=== PATIENT | male | born 1935 | race Caucasian/White ===

== ENCOUNTER 2019-10-08 10:45 | Inpatient (IN) | payer MEDICARE ==
[2019-10-08] MEDS ORDERED: GLUCAGON HCl 1 MG KIT IM PRN (21:07)
[2019-10-09] MEDS: INSULIN LISPRO SLIDING SCALE 100 UNITS/ML UNIT SUBQ SCH ×4 (06:33→21:17)
[2019-10-09] MEDS ORDERED: Non-Formulary Item 1 EA (Mirabegron [Myrbetriq] 50 MG) PO SCH (09:00)
[2019-10-09] MEDS: Aspirin 81mg Chewable Tab PO SCH (09:33)
[2019-10-09] MEDS: Apixaban 5 MG TABLET PO SCH ×2 (09:33→16:47)
--- NOTE | 2019-10-09 10:10 | History & Physical ---
ADMIT DATE: 10/09/2019 MEDICAL H AND P IDENTIFICATION: An 84-year-old male. PSYCHIATRIST: Dr. Sharif. HISTORY OF PRESENT ILLNESS: An 84-year-old male with history of type 2 diabetes, hypertension, chronic AFib currently on blood thinner, presented to [facility] for hallucination where the patient was evaluated and noted that the patient has significant psychiatric history, needed to have a psychiatric evaluation and management. The patient is now transferred to [facility]. PAST MEDICAL HISTORY: Remarkable for: 1. Chronic AFib. 2. Anxiety, depression. 3. Diabetes mellitus. 4. Hypertension. 5. Hyperlipidemia. 6. Coronary artery disease. 7. Status post bypass graft. MEDICATIONS: At the time of transfer have been reviewed and reconciled appropriately. ALLERGIES: THE PATIENT IS ALLERGIC TO MULTIPLE MEDICATIONS, WHICH INCLUDE LISINOPRIL, PENICILLIN, AMIODARONE. SOCIAL HISTORY: The patient lives with the family. The patient has no history of smoking cigarette, alcohol or drug use. FAMILY MEDICAL HISTORY: Remarkable for diabetes mellitus and hypertension. PAST SURGICAL HISTORY: Remarkable for coronary artery disease, bypass graft in 2018 and rotator cuff injury on the left shoulder in 2009. REVIEW OF SYSTEMS: The patient currently denies any chest pain, shortness of breath, palpitations, dizziness, nausea, vomiting, headache, seizure, syncopal episode, no history of any hematuria, hematochezia, melena. No history of any cough, no history of paroxysmal nocturnal dyspnea, no history of any orthopnea, headache. PHYSICAL EXAMINATION: GENERAL: The patient is alert, awake, sitting in the bed without any acute distress. VITAL SIGNS: Temperature is 98, pulse is 76, respiratory rate is 18, blood pressure is 140/80. SKIN: Warm to touch. Adequate skin turgor. No petechiae, no purpura. HEENT: Normocephalic, atraumatic. Extraocular muscles are intact. Tongue was pink and coated. No oral lesion, no exudate. No sinus tenderness. NECK: Supple, no JVD, no hepatojugular reflex. No lymphadenopathy, thyromegaly or carotid bruit. HEART: Both heart sounds are regular. No S3, no S4, no murmur. CHEST AND LUNGS: Equal in expansion, no expiratory wheezing. ABDOMEN: Soft, no guarding, no rigidity. Liver and spleen not palpable. No palpable mass. EXTREMITIES: No edema, no cyanosis. Peripheral pulses are +1. No calf tenderness noted. NEUROLOGIC: Alert, awake, lying in the bed without any acute distress. Power in upper and lower extremities 5-. Sensation to touch is intact. Babinski's in both toes are going down. No cerebral sign. Available diagnostic data performed in [facility], which includes CBC, CMP, toxicity screen, urinalysis and thyroid, has been reviewed, which is remarkable for leukocytosis with a white count of 14.93, blood sugar of 216, BUN is 25, AST of 49, creatinine 1.2, magnesium was low at 0.6. Small protein was noted. CT head was unremarkable for any new CVA. CLINICAL IMPRESSIONS: 1. Exacerbation of depression. 2. Type 2 diabetes mellitus. 3. Hypertension. 4. Hyperlipidemia. 5. Coronary artery disease, status post bypass graft. 6. Degenerative joint disease. 7. Chronic atrial fibrillation. 8. High risk for fall. 9. Long-term anticoagulation therapy. PLAN: 1. Psychiatric evaluation and management deferred to psychiatrist. 2. Monitor blood sugar and blood pressure. 3. In the view of poor p.o. intake, hold oral sulfonylurea, continue metformin and continue to monitor blood sugar with sliding scale insulin. 4. Continue anticoagulation therapy with Eliquis, rate control, fall precautions, nutritional support, general nursing care as well as follow up lab to assess the patient's potassium and magnesium and creatinine function evaluation. Based on that, we will decide if the patient should be continued on metformin. I will hold metformin if the patient's creatinine is above 1.5. The patient will be followed by me during his stay in the hospital. I sincerely thank you, Dr. Sharif, for giving me the opportunity to participating in patient of yours. JOB# [id number]
--- NOTE | 2019-10-09 13:12 | History & Physical ---
ADMIT DATE: 10/08/2019 IDENTIFYING INFORMATION: The patient is 84-year-old male. CHIEF COMPLAINT: "I did bad things" with previous admission. The patient was admitted on a hold for grave disability. HISTORY OF PRESENT ILLNESS: The patient was psychotic, suicidal, and attempted to try to harm himself. He has 4 prior hospitalizations. He believes he is going to burn in hell and that he was walking around naked at home, was internally preoccupied, unable to formulate a viable plan for self-care. When I talked to him he was a poor historian. He was also hard of hearing. He told me, I did bad things and I need to pay for it. The patient reports he had a nervous breakdown, unable to give me more details, unable tell me how he is sleeping or eating. He knew this was 09/2019, not sure exactly what day in 09/2019. Denies any substance abuse. PAST PSYCHIATRIC HISTORY: The patient had 4 prior hospitalizations. The patient is confused. The patient unable to give more details. MEDICAL HISTORY: THE PATIENT IS ALLERGIC TO LISINOPRIL, PENICILLIN AND AMIODARONE. The patient is hard of hearing. MEDICATIONS: The patient has been on Lexapro 20 mg a day, Glucotrol, insulin. He is diabetic. He is on metformin, insulin; high blood pressure on metoprolol, atorvastatin on high lipid profile. FAMILY AND SOCIAL HISTORY: The patient reports he has 3 children and unable to tell me if he is or not. 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 He denies any family psychiatric disorder; however, he is a poor historian. MENTAL STATUS EXAMINATION: The patient is appropriately dressed, not well groomed. He was alert, unable to tell me his age. He knew he was in the hospital. He is not sure why he is in the hospital. He believe he done a lot about things, he needs to pay for it. He was walking naked. He wanted to harm himself. He is unpredictable and impulsive. Long and short term memory is poor. Insight and judgment is impaired. When asked about suicide and homicide, he would not answer. His insight and judgment is impaired, does not realize what problem he has. Judgment is poor, walking naked, wanting to harm himself. IMPRESSION: Major depression, recurrent with psychosis and dementia. MEDICAL DIAGNOSES: Hypercholesterolemia, hypertension and diabetes mellitus. Assets, he is accepting treatment. Negative; poor coping skills. INITIAL TREATMENT PLAN: The patient will be started on Aricept to improve his cognition. We will try to get more information on him. We will do group therapy, milieu therapy, and individual therapy. ESTIMATED LENGTH OF STAY: 3-7 days. DISCHARGE CRITERIA: Decreasing depression, paranoia after discharge, outpatient treatment. JOB# [id number] [facility]
[2019-10-10] MEDS: INSULIN LISPRO SLIDING SCALE 100 UNITS/ML UNIT SUBQ SCH ×4 (06:45→21:18)
[2019-10-10] MEDS: Aspirin 81mg Chewable Tab PO SCH (08:57)
[2019-10-10] MEDS: Apixaban 5 MG TABLET PO SCH ×2 (08:57→16:41)
--- NOTE | 2019-10-11 02:35 | Progress Notes ---
DATE: 10/10/2019 SUMMARY: Case was discussed with staff of the patient and reviewed treatment goals. Also discussed the care with his daughter, Alina, who I left a message yesterday, then she called back, and today, I called her again. She tells me that this patient had 4 prior hospitalizations. Apparently, he was from his . He was able to be independent up until June of last year. He used to live in [place]. 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 They moved him here to independent community and the daughter lives in [place] and the son lives in [facility] and they alternate taking care of him. She reports that there is a positive family history of psychiatric disorder. Actually, had a nephew that killed himself and his daughter has depression, so there is a positive family history of depression and suicide. I discussed with the daughter that the patient is high risk for dementia, especially with him being depressed, on antidepressant, also having high cholesterol, diabetes, hypertension, and that he may need 24-hour care and discussed with her medication benefits and side effects including Risperdal and Aricept. The patient has been compliant with the medication with no side effects. Daughter believes that at night, he is feeling that he has been burn in hell, he is actually maybe in his dreams, he is having bad dreams. She reports that he had a girlfriend, apparently an ex-girlfriend that ended up having problems and that led to his 4 prior hospitalizations. The patient used to teach fifth grade. The patient continues to be unable to participate in a meaningful conversation or make safe plan for his self-care. He continues to have poor insight in general. No side effects with the medication, no sedation, no nausea, and no extrapyramidal symptoms. He continues to be delusional and paranoid. The patient was walking naked in the house. I will be extending the hold and discuss that with the daughter. We will continue to work with the patient in group therapy, milieu therapy, and adjust medications as needed. JOB# [id number]
[2019-10-11] MEDS: INSULIN LISPRO SLIDING SCALE 100 UNITS/ML UNIT SUBQ SCH ×4 (06:35→20:57)
[2019-10-11] MEDS: Apixaban 5 MG TABLET PO SCH ×2 (09:20→16:25)
[2019-10-11] MEDS: Aspirin 81mg Chewable Tab PO SCH (09:20)
[2019-10-11] MEDS: MYRBETRIQ 50 MG PO SCH (14:00)
--- NOTE | 2019-10-11 22:25 | Progress Notes ---
DATE: 10/11/2019 SUBJECTIVE: Case was discussed with staff of the patient, reviewed records. The patient continues to be confused. He is incontinent today. Continues to be unable to make safe plan for self-care. Continues to have poor insight. I discussed the care with his daughter yesterday. I was trying to work on discharge plan for him and what to do for him. He is unable to tell me the exact date. He continues to be unable to participate for a long time meaningful conversation. He is just confused. No side effects with the medication, no sedation, no nausea. We will continue outpatient group therapy, milieu therapy, and adjust medication as needed. JOB# [id number]
[2019-10-12] MEDS: INSULIN LISPRO SLIDING SCALE 100 UNITS/ML UNIT SUBQ SCH ×4 (06:52→21:02)
[2019-10-12] MEDS: Aspirin 81mg Chewable Tab PO SCH (08:35)
[2019-10-12] MEDS: Apixaban 5 MG TABLET PO SCH ×2 (08:35→16:18)
[2019-10-12] MEDS: MYRBETRIQ 50 MG PO SCH (08:53)
--- NOTE | 2019-10-12 16:00 | Progress Notes ---
DATE: 10/12/2019 Case was discussed with staff of the patient, also had a discussion with his son yesterday, Vaibhav and discussed with him the situation. Prognosis what diagnosis he possibly could have and the need for him to have 24-hour care. His son reported that they do plan to give him a caregiver to be with him 24 hours or maybe had to be living in assisted living with a history of being in the [facility]. The patient apparently has long history of prior psychiatric hospitalizations, long history of depression. The patient continues to be somewhat confused, unable to answer questions appropriately. He is trying to tell me he is constipated, but did not know how to deal it. Finally, he said he has to release what is in his stomach. he Continues to have poor insight, unable to tell me the exact date agitated. No side effects of the medication, no sedation, no nausea, no extrapyramidal symptoms. I will be increasing Risperdal to 0.5 mg twice a day to help improve his cognition and delusional thinking. No side effects of the medication, no sedation, no nausea, no extrapyramidal symptoms. We will continue the patient in group therapy, milieu therapy, adjust medication as needed. JOB# [id number]
[2019-10-13] MEDS: INSULIN LISPRO SLIDING SCALE 100 UNITS/ML UNIT SUBQ SCH ×4 (06:44→20:26)
[2019-10-13] MEDS: Aspirin 81mg Chewable Tab PO SCH (09:22)
[2019-10-13] MEDS: Apixaban 5 MG TABLET PO SCH ×2 (09:22→16:36)
[2019-10-13] MEDS: MYRBETRIQ 50 MG PO SCH (09:23)
--- NOTE | 2019-10-14 00:47 | Progress Notes ---
DATE: 10/13/2019 IDENTIFICATION: An 84-year-old male. SUBJECTIVE: The patient was seen and examined. The patient is lying in the bed. The patient is easy to awake. The patient denies any chest pain, shortness of breath, palpitation, dizziness, nausea or vomiting. The patient is ambulatory. PHYSICAL EXAMINATION: VITAL SIGNS: Temperature 98.6, pulse is 56, respiratory rate 18, blood pressure 92/43. HEENT: No facial asymmetry. NECK: Supple, no JVD. HEART: Regular. CHEST AND LUNGS: Equal in expansion, no expiratory wheezing. ABDOMEN: Soft. No guarding, no rigidity. Bowel sounds present. No palpable mass. EXTREMITIES: No edema, no cyanosis. NEUROLOGIC: Alert, awake, follows command. Decreased power throughout the upper and lower extremity. AVAILABLE DIAGNOSTIC DATA: None for my review. MEDICATIONS: Admission record has been reviewed. CLINICAL IMPRESSION: 1. Major depression. 2. Psychotic disorder. 3. Type 2 diabetes. 4. Hypertension. 5. Hyperlipidemia. 6. Coronary artery disease, status post bypass graft. 7. Degenerative joint disease. 8. Chronic atrial fibrillation. 9. High risk for fall. 10. Long-term anticoagulant therapy. 11. Ruled out depression. PLAN: 1. Psychotic evaluation and management deferred to psychiatrist. 2. Monitor blood sugar and blood pressure. 3. Continue other medication as prescribed. 4. Fall precautions. 5. General nursing care. 6. Nutritional support. 7. PT and OT. 8. Follow labs. 9. Care plan reviewed and discussed with the patient's daughter, Elizabeth Christine over the phone care as well as assigned nurse. JOB# [id number]
--- NOTE | 2019-10-14 03:18 | Progress Notes ---
DATE: 10/13/2019 Case was discussed with staff of the patient, reviewed records. The patient has been isolating himself. He was feeding himself today. He ate only the eggs, at breakfast. He was able to tell me that. He was unable to tell me the date. He is confused, unable to make safe plan for self-care or participate in meaningful conversation for a long time. The staff is working on placing him in an assisted living with the understanding that there was a planned 24-hour care as I spoke to his son and his daughter. No side effects with the medication, no sedation, no nausea, no extrapyramidal symptoms. I asked him if he is still confused , he would not answer me. He would not answer any question regarding suicide, homicide. No side effects with the medication, no sedation, no nausea, no extrapyramidal symptoms. We will continue outpatient group therapy, milieu therapy, and adjust medications as needed. JOB# [id number] [facility]
[2019-10-14] MEDS: INSULIN LISPRO SLIDING SCALE 100 UNITS/ML UNIT SUBQ SCH ×4 (06:36→20:43)
[2019-10-14] MEDS: MYRBETRIQ 50 MG PO SCH (09:12)
[2019-10-14] MEDS: Apixaban 5 MG TABLET PO SCH ×2 (09:12→16:29)
[2019-10-14] MEDS: Aspirin 81mg Chewable Tab PO SCH (09:13)
--- NOTE | 2019-10-14 17:24 | Progress Notes ---
DATE: 10/14/2019 Case was discussed with staff of the patient, reviewed records. The patient continues to be somewhat confused. He knew it is 09/2019. He is not eating great. He is sleeping okay. He continues to be confused, unable to participate in a lengthy conversation. His answers are only one word, isolating himself. Continues to appear to be depressed. No side effects with the medication. No sedation. No nausea and continues to feel like ____ and tolerating increase in Risperdal with no side effects, no sedation, no nausea, no extrapyramidal symptoms. We will continue outpatient group therapy, milieu therapy, adjust the medication as needed. JOB# [id number]
[2019-10-15] MEDS: INSULIN LISPRO SLIDING SCALE 100 UNITS/ML UNIT SUBQ SCH ×4 (06:55→21:51)
[2019-10-15] MEDS: MYRBETRIQ 50 MG PO SCH (08:31)
[2019-10-15] MEDS: Aspirin 81mg Chewable Tab PO SCH (08:31)
[2019-10-15] MEDS: Apixaban 5 MG TABLET PO SCH ×2 (08:31→16:23)
--- NOTE | 2019-10-15 13:03 | Progress Notes ---
DATE: 10/15/2019 Case was discussed with staff of the patient, reviewed records. The patient is able to talk a little bit more. He believes this is the 10/14/2019. However, he poses and it takes him a while to give the information. He know he is in the hospital because he had a nervous breakdown. He said he is trying to get out of it, but sometimes he could and he has some psychomotor retardation. He continues to be depressed, overwhelmed, forgetful, unable to take care of himself, needs help with his ADLs, able to feed himself, sleeping better, eating better. No side effects with the medication, no sedation, no nausea, no extrapyramidal symptoms. We will continue outpatient group therapy, milieu therapy, adjust the medication as needed. Tolerating increase in Risperdal with no problem. He is already on Lexapro 20 mg a day. JOB# [id number]
[2019-10-16] MEDS: INSULIN LISPRO SLIDING SCALE 100 UNITS/ML UNIT SUBQ SCH ×4 (06:44→20:47)
[2019-10-16] MEDS: MYRBETRIQ 50 MG PO SCH (09:19)
[2019-10-16] MEDS: Apixaban 5 MG TABLET PO SCH ×2 (09:20→16:57)
[2019-10-16] MEDS: Aspirin 81mg Chewable Tab PO SCH (09:20)
--- NOTE | 2019-10-16 13:59 | Progress Notes ---
DATE: 10/16/2019 Case was discussed with staff of the patient, reviewed records and talked to Dr. De Los Santos, his primary care physician who told me he saw him 2 months ago and he was doing very well and that he was in very good shape. He was able to jog. He was driving and I am not sure that he may had a stroke and I discussed the care with Dr. Nicole. He apparently according to the son, who was on the unit this morning, he told me that he did have a CT scan of the head just before he came in here and he was fine; however, I will leave this up to Dr. Alfredo to make further decision. He is ordering some more lab work. I am not sure if he will do MRI. The patient is alert, but he has no energy, no motivation. Obviously, the Lexapro is not working with psychomotor retardation. I will be changing it to Effexor and also he will be taking Aricept at the same time just to see how he does without it and further workup will be done by Dr. Nicole. We will continue outpatient group therapy, milieu therapy, and adjust the medication as needed. JOB# [id number] MTDZechariah
--- NOTE | 2019-10-16 14:37 | Diagnostic Imaging Report ---
CHEST X-RAY: AP view INDICATION: Positive PPD rule out TB COMPARISON: None FINDINGS: There is evidence of prior median sternotomy. There is elevation of right hemidiaphragm. There is no focal consolidation or pleural effusions. Mild cardiomegaly is noted with atherosclerosis. Degenerative changes of the spine are noted. IMPRESSION: No focal consolidation or evidence radiographic evidence of active tuberculosis. Please correlate clinically. Mild cardiomegaly atherosclerosis Evidence of prior median sternotomy.
[2019-10-16] MEDS ORDERED: Venlafaxine HCl ER 37.5 mg Tab PO SCH (17:00)
[2019-10-17] MEDS: INSULIN LISPRO SLIDING SCALE 100 UNITS/ML UNIT SUBQ SCH ×4 (06:35→20:37)
[2019-10-17] MEDS: MYRBETRIQ 50 MG PO SCH (08:23)
[2019-10-17] MEDS: Aspirin 81mg Chewable Tab PO SCH (08:23)
[2019-10-17] MEDS: Apixaban 5 MG TABLET PO SCH ×2 (08:23→16:33)
[2019-10-17] MEDS ORDERED: Venlafaxine HCl ER 37.5 mg Tab PO SCH (09:00)
--- NOTE | 2019-10-17 21:03 | Progress Notes ---
DATE: 10/17/2019 Case was discussed with staff of the patient, reviewed records. He is on Lexapro, start him on Effexor. Today, he was feeding himself. He has a little bit more energy. Continues to have constricted affect. The patient continues to be depressed, overwhelmed. I started him yesterday on Effexor 37.5 mg daily with no side effects, no sedation, no nausea, no extrapyramidal symptoms. Risperdal 0.5 mg twice a day and I will be increasing the dose of Effexor to 75 mg daily to help improve his depression, give him more energy. We will continue outpatient group therapy, milieu therapy, adjust the medication as needed. JOB# [id number] MTDD
--- NOTE | 2019-10-17 23:40 | Progress Notes ---
DATE: 10/17/2019 SUBJECTIVE: The patient seen and examined. The patient is sitting in the bed, eating his breakfast. The patient has a very flat affect. The patient did have a blood test done this morning, which I ordered yesterday. Chest x-ray was done, which is unremarkable. The patient is currently alert, awake, answering all the questions appropriately. On further questioning, the patient denies any chest pain, shortness of breath, palpitation, dizziness, nausea, vomiting, headache. PHYSICAL EXAMINATION: VITAL SIGNS: Temperature 98.8, pulse is 93, respiratory rate 18, blood pressure 124/61. HEENT: No facial asymmetry. NECK: Supple, no JVD. HEART: Both heart sounds are regular. CHEST AND LUNGS: Equal in expansion, no expiratory wheezing. ABDOMEN: Soft. No guarding, no rigidity. Bowel sounds are present. No palpable mass. EXTREMITIES: No edema, no cyanosis. Peripheral pulses are +2. No calf tenderness. NEUROLOGIC: Alert, awake, following commands. Decreased power throughout the upper and lower extremity. AVAILABLE DIAGNOSTIC DATA: None for my review. CLINICAL IMPRESSION: 1. Depression exacerbation. 2. Diabetes mellitus. 3. Hypertension. 4. Hyperlipidemia. 5. Coronary artery disease, status post bypass graft. 6. Chronic atrial fibrillation. 7. Degenerative joint disease. 8. High risk for fall. 9. Long-term anticoagulation therapy. 10. Poor p.o. intake and increasing lethargy. Differential diagnosis ruled out underlying depression causing symptoms, ruled out medication side effect, ruled out infectious or other metabolic etiology. 11. Underlying dementia, most likely Alzheimer's versus multi-infarct. PLAN: In the view of the patient's symptoms of increasing lethargy and poor p.o. intake, I have discontinued the patient's metformin, which can cause the appetite suppression and also I have cut down his Lipitor to 40 mg daily instead of 80. Lab has been requested. We will review it and we may give further recommendation. I do not see any clear-cut evidence of any infection at this time. I do think the patient's symptoms more related to psychotic illness. 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 I do think the patient may have underlying depression and dementia together as well. Care plan has been reviewed and discussed with MICHELLE. JOB# [id number]
[2019-10-18] MEDS: INSULIN LISPRO SLIDING SCALE 100 UNITS/ML UNIT SUBQ SCH ×4 (06:32→20:38)
[2019-10-18] MEDS: Aspirin 81mg Chewable Tab PO SCH (08:27)
[2019-10-18] MEDS: Apixaban 5 MG TABLET PO SCH ×2 (08:27→16:12)
[2019-10-18] MEDS: MYRBETRIQ 50 MG PO SCH (08:28)
--- NOTE | 2019-10-18 21:00 | Progress Notes ---
DATE: 10/18/2019 SUBJECTIVE: The patient seen and examined. The patient is lying in the bed. The patient is more alert, awake and talking appropriately. The patient currently denies any chest pain, shortness of breath, palpitation, dizziness, nausea, vomiting or diarrhea. PHYSICAL EXAMINATION: On today's exam: VITAL SIGNS: Temperature 97.4, pulse is 96, respiratory rate 18, blood pressure 134/72. HEENT: No facial asymmetry. NECK: Supple, no JVD. HEART: Irregularly irregular. CHEST AND LUNGS: Equal in expansion, no expiratory wheezing. ABDOMEN: Soft. Bowel sounds present. No palpable mass. EXTREMITIES: No edema. AVAILABLE DIAGNOSTIC DATA: Performed on 10/17/2019; sodium 129, potassium 4.1, chloride 100, BUN and creatinine is 30 and 1.22. Glucose of 181. Albumin of 2.6. White count of 11.9, hemoglobin 14.1, platelet count 265. Lactic acid 1.6. Urinalysis is not available. CLINICAL IMPRESSION: 1. Elevated BUN with normal creatinine, most likely secondary to prerenal azotemia. 2. Hyponatremia, probably secondary to poor p.o. intake. 3. Diabetes mellitus. 4. Hypertension. 5. Chronic atrial fibrillation. 6. Coronary artery disease, status post bypass graft. 7. Degenerative joint disease. 8. Depression. 9. Rule out underlying dementia. PLAN: Based on the currently prescribed lab, I do not think the patient needs to be transferred to medical floor, but the patient should be encouraged to drink plenty of fluids and oral intake and once the patient has adequate oral intake, we will recheck the basic metabolic panel. I do believe all his symptoms are related to underlying depression and possible dementia. The management has been deferred to psychiatrist. We will continue to monitor blood sugar and blood pressure for diabetes and hypertension. We will continue current medication as prescribed. We will follow this patient during the stay in the hospital. JOB# [id number]
--- NOTE | 2019-10-18 22:32 | Progress Notes ---
DATE: 10/18/2019 SUBJECTIVE: Case was discussed with staff of the patient, reviewed records. The patient seems to be showing progress. He is more energetic today, more spontaneous. "I was able to tell me the date, being 10/18/2019." The patient has more energy. He is sleeping better, eating better. He tolerated the adding of the Effexor with no side effects, no sedation, no nausea, no extrapyramidal symptoms. I will be increasing the Effexor further to 112.5 mg daily. No side effects with the medication, no sedation, no nausea, no extrapyramidal symptoms. Also the family is working on discharge plan and to go to [facility] that is where the family wanted him to go and we will continue outpatient group therapy, milieu therapy, and adjust medication as needed. JOB# [id number]
[2019-10-19] MEDS: INSULIN LISPRO SLIDING SCALE 100 UNITS/ML UNIT SUBQ SCH ×4 (07:02→20:39)
[2019-10-19] MEDS: Apixaban 5 MG TABLET PO SCH ×2 (08:28→16:48)
[2019-10-19] MEDS: Aspirin 81mg Chewable Tab PO SCH (08:28)
[2019-10-19] MEDS: MYRBETRIQ 50 MG PO SCH (08:49)
[2019-10-19] MEDS ORDERED: Venlafaxine HCl ER 37.5 mg Tab PO SCH (09:00)
--- NOTE | 2019-10-19 14:58 | Progress Notes ---
DATE: 10/19/2019 Case was discussed with staff of the patient, reviewed records. The patient was somewhat confused today he started telling me the date, but he stopped. He said I could not think. He has some psychomotor retardation. He did better yesterday, so I will be decreasing his Effexor to only 75 mg daily as he did better on that dose. He is sleeping better, eating better. He can feed himself. He was unable to say much today. He looked overwhelmed. He said "I cannot get it together." He was denying any intent to harm himself or anyone. I will be decreasing his Effexor to 75 mg a day. The staff is also working on discharge plan. He will be going to [facility] and the patient is denying any current intent to harm himself or anyone and denying any auditory or visual hallucination, at times feel he is evil. I will continue to work with the patient in group therapy, milieu therapy, and adjust the medication as needed. JOB# [id number]
[2019-10-20] MEDS: INSULIN LISPRO SLIDING SCALE 100 UNITS/ML UNIT SUBQ SCH ×4 (06:57→20:55)
[2019-10-20] MEDS: Aspirin 81mg Chewable Tab PO SCH (08:20)
[2019-10-20] MEDS: Apixaban 5 MG TABLET PO SCH ×2 (08:20→16:41)
[2019-10-20] MEDS: MYRBETRIQ 50 MG PO SCH (08:23)
[2019-10-21] MEDS: INSULIN LISPRO SLIDING SCALE 100 UNITS/ML UNIT SUBQ SCH ×5 (06:51→20:55)
[2019-10-21] MEDS: Aspirin 81mg Chewable Tab PO SCH ×2 (09:00→09:05)
[2019-10-21] MEDS: MYRBETRIQ 50 MG PO SCH ×2 (09:00→09:04)
[2019-10-21] MEDS: Apixaban 5 MG TABLET PO SCH ×3 (09:00→16:17)
--- NOTE | 2019-10-22 00:31 | Progress Notes ---
DATE: 10/20/2019 Case was discussed with staff of the patient, reviewed records. The patient today is talking more. He has a little bit more energy. Continues to be depressed, continues to isolate himself. He was able to tell me the date. He seems to start to show little progress. I will keep him on the same dose of Effexor, as when I increased the dose he got worse and currently no side effects with the medication, no sedation, no nausea, no extrapyramidal symptoms , will go to a [facility] and we will continue outpatient group therapy, milieu therapy, and adjust medication as needed. JOB# [id number] MTDZechariah
[2019-10-22] MEDS: INSULIN LISPRO SLIDING SCALE 100 UNITS/ML UNIT SUBQ SCH ×4 (06:50→21:41)
[2019-10-22] MEDS: MYRBETRIQ 50 MG PO SCH ×2 (08:57→09:35)
[2019-10-22] MEDS: Apixaban 5 MG TABLET PO SCH ×3 (08:57→17:44)
[2019-10-22] MEDS: Aspirin 81mg Chewable Tab PO SCH ×2 (08:57→09:36)
--- NOTE | 2019-10-22 17:51 | Progress Notes ---
DATE: 10/22/2019 SUBJECTIVE: The patient seen and examined. The patient was sent to Emergency Room yesterday. The patient did have a workup including CT scan of head, x-rays of the left shoulder, blood test, urinalysis. According to Emergency Room MD and reviewing the chart, it was noted that the patient's creatinine with slightly elevated. The patient did not have any bleed. The patient is lying comfortably, though the patient is easy to awake. The patient looks a little lethargic. The patient otherwise remaining without any acute distress. PHYSICAL EXAMINATION: VITAL SIGNS: See nurse's note. HEENT: No facial asymmetry. NECK: Supple. No JVD. HEART: Irregularly irregular. CHEST: Lung equal in expansion. No expiratory wheezing. ABDOMEN: Soft. Bowel sounds present. No palpable masses. EXTREMITIES: +1 edema. NEUROLOGICAL: Nonfocal, moving upper and lower extremity without difficulty. CLINICAL IMPRESSION: 1. Slightly elevated creatinine, probably secondary to poor p.o. intake causing prerenal azotemia. 2. Diabetes mellitus with elevated blood sugar. 3. Declining mental status, probably depression, rule out medication, rule out worsening dementia. 4. Hypertension. 5. Chronic atrial fibrillation. 6. Coronary artery disease, status post-bypass graft. 7. Degenerative joint disease. 8. High risk for fall. 9. Poor p.o. intake. PLAN: The patient will be placed on close supervision for fall. The patient to have diabetes management along with oral hypoglycemic agent. Continue to monitor his vital signs and provide currently prescribed medications. A Doppler study has been requested, which we will review it and give further recommendations. I do not see any sign of an infection. I will not consider to put the patient on antibiotic. The patient will be followed by us during the stay in the hospital. I will be talking to the patient's daughter about the patient's conditions and treatment plan. JOB# [id number]
--- NOTE | 2019-10-23 03:11 | Progress Notes ---
DATE: 10/22/2019 PSYCHIATRIC PROGRESS NOTE SUBJECTIVE: Chart was reviewed and the patient interviewed. Also discussed the patient's condition with the staff and reviewed records and labs. The patient still seems to be slightly drowsy, but steady gait. The patient seems slightly confused, but cooperative. The patient also is still trying to interact more, but in a confused state. The patient was sent yesterday to [facility] and had ____ after he fell and ____ came negative and the patient returned to the hospital. Otherwise, no side effects of medications. ASSESSMENT: The patient is still confused and slightly sleepy. TREATMENT PLAN: We will continue monitoring his behavior closely. Also, we will decrease Risperdal to 0.25 mg at bedtime and we will continue to follow up. JOB# [id number]
[2019-10-23] MEDS: INSULIN LISPRO SLIDING SCALE 100 UNITS/ML UNIT SUBQ SCH ×4 (06:39→20:46)
[2019-10-23] MEDS: MYRBETRIQ 50 MG PO SCH (09:00)
[2019-10-23] MEDS: Apixaban 5 MG TABLET PO SCH ×2 (09:01→17:28)
[2019-10-23] MEDS: Aspirin 81mg Chewable Tab PO SCH (09:01)
--- NOTE | 2019-10-23 13:21 | Progress Notes ---
DATE: 10/23/2019 Case was discussed with staff of the patient, reviewed records. The patient is not doing well. He is not able to talk spontaneously today, some blocked thoughts. The patient kept his eyes closed. The staff reported that he fell down. The patient seems to have no energy, no motivation. The staff report, there have been no sequelae from the fall; however, Dr. Alfredo ordered an x-ray of the neck, cervical spine, and left shoulder. Venous Doppler of both lower extremities and Tylenol p.r.n. and the patient will be going to [place] to have this done. The patient so far has been compliant with the medication. The family is refusing only the ultrasound; however, the rest of the x-rays are done, nothing came positive for any fractures and I will be asking for a second opinion from Dr. Vann to see him tomorrow. The patient continues to be on Risperdal and the dose was decreased to 0.25 mg at bedtime by Dr. Hays over the weekend and yesterday he is on Effexor 75 mg daily. We will continue outpatient group therapy, milieu therapy, and adjust medications as needed. JOB# [id number]
[2019-10-24] MEDS: INSULIN LISPRO SLIDING SCALE 100 UNITS/ML UNIT SUBQ SCH ×4 (06:50→20:24)
[2019-10-24] MEDS: Aspirin 81mg Chewable Tab PO SCH (08:30)
[2019-10-24] MEDS: MYRBETRIQ 50 MG PO SCH (08:30)
[2019-10-24] MEDS: Apixaban 5 MG TABLET PO SCH ×2 (08:30→16:59)
--- NOTE | 2019-10-24 17:02 | Progress Notes ---
DATE: 10/24/2019 MEDICAL PROGRESS NOTE SUBJECTIVE: The patient seen and examined. The patient is lying in the bed. The patient is more alert and awake, asking for his family. The patient's family is requesting to feed this patient from home. The patient currently denies any chest pain, shortness of breath, palpitation, dizziness, nausea, or vomiting. PHYSICAL EXAMINATION: VITAL SIGNS: Temperature 97, pulse is 74, respiratory rate 18, blood pressure 112/65. HEENT: No facial asymmetry. NECK: Supple, no JVD. HEART: Regular. CHEST AND LUNGS: Equal in expansion, no expiratory wheezing. ABDOMEN: Soft. Bowel sounds present. No palpable mass. EXTREMITIES: No edema. NEUROLOGIC: Alert, awake, follows command. No gross neuro deficit noted. AVAILABLE DIAGNOSTIC DATA: None for my review. Glucoscan is reviewed. CLINICAL IMPRESSION: 1. Diabetes. 2. Hypertension. 3. Chronic atrial fibrillation. 4. Coronary artery disease, status post bypass graft. 5. Hyperlipidemia. 6. Degenerative joint disease. 7. Anticoagulation therapy. PLAN: 1. Psychotic evaluation and management deferred to psychiatrist. 2. Continue current medicine as prescribed. 3. Fall precautions. 4. General nursing care. 5. Monitor vital signs. 6. Monitor glucose. 7. Nutritional support. 8. Chronic disease management. 9. Symptoms management. 10. Medication management. 11. Care plan reviewed and discussed with staff. JOB# [id number]
--- NOTE | 2019-10-24 20:39 | Progress Notes ---
DATE: 10/24/2019 Second opinion note, Dr. Sharif. SUBJECTIVE: I spoke with Dr. Sharif personally about this patient, reviewed records, notes. Per nursing staff, the patient has been showing signs of improvement, more awake, alert. On [id number], he is AO to name, place, situation, month, year. He knows he is in the hospital. He does not know the name of the hospital or the city. He attests to depression, but states that since he has been here he has been doing better, still feeling somewhat tired. Per nursing staff, he has been verbalizing he wants to leave and he has been eating 100% of the family food and the family is very involved with him. Family concerned about medication side effects, oversedation. The patient is arousable on exam. OBJECTIVE: On exam, the patient answering questions appropriately, more awake, engaged. No current SI or HI, no overt psychotic symptoms. Insight seems more reasonable. He states that he wants to walk. He states that if physical therapy were available, he would certainly work with them, "I want to walk." PLAN: The patient likely could be managed at a lower level. He is not suicidal. He is not homicidal. He is not psychotic. He is eating well and sleeping fairly well and redirectable and not agitated per staff. Motivated for physical therapy, which is something he could benefit from. Dr. Sharif is interested in potentially initiating Wellbutrin, which, at a low dose, could be a reasonable alternative to the Effexor. Family is concerned it may be causing side effects. Continue dosing of Risperdal at 0.25 mg. Apparent history of psychotic depression in the past. Would recommend a further 24 hours of monitoring with planned discharge tomorrow if shelter accepts. JOB# [id number]
--- NOTE | 2019-10-24 21:33 | Progress Notes ---
DATE: Case was discussed with staff of the patient, reviewed records. I discussed the care with his daughter yesterday as she was extremely upset that nobody called her regarding his fall and I explained to her that I was out till today I called her yesterday that is when I found out about him falling and that his medication have been held. He said that he was seen in the Emergency Room. He was told that his medication need to be adjusted. The psych medication that may have caused the sedation, luckily he did not have any injury, we have been withholding his medication. She agreed that I start Wellbutrin. Discussed side effects with her and so far he has not been taking any psychotropic medication for a few days. I asked Dr. Vann for a second opinion and he believes that he is doing much better as he was told that he is eating 100% of the food that his family has been bringing to him, he is not suicidal. He is not paranoid, so if I had to accept him, maybe we could let him go. I will be also initiating on a very small dose of Wellbutrin, one-half a tablet of 100 mg. Discussed side effects with his daughter. The patient has no history of seizure disorder, or eating disorder so I will be initiating him on a very small dose of 50 mg one-half a tablet of 100 mg SR and the patient used to be on antidepressant for years with multiple prior hospitalizations. The patient denies any intent to harm himself or anyone. He denies any additional visual hallucination or paranoia and at this point, also we will ask the patient to sign voluntary and will continue outpatient group therapy, milieu therapy, adjust medication as needed. JOB# [id number] JEWELL
[2019-10-25] MEDS: INSULIN LISPRO SLIDING SCALE 100 UNITS/ML UNIT SUBQ SCH ×4 (06:46→20:53)
[2019-10-25] MEDS: MYRBETRIQ 50 MG PO SCH (08:44)
[2019-10-25] MEDS: Apixaban 5 MG TABLET PO SCH ×2 (08:44→16:28)
[2019-10-25] MEDS: Aspirin 81mg Chewable Tab PO SCH (08:45)
[2019-10-26] MEDS: INSULIN LISPRO SLIDING SCALE 100 UNITS/ML UNIT SUBQ SCH ×4 (06:46→21:56)
[2019-10-26] MEDS: MYRBETRIQ 50 MG PO SCH (09:12)
[2019-10-26] MEDS: Apixaban 5 MG TABLET PO SCH ×2 (09:13→17:23)
[2019-10-26] MEDS: Aspirin 81mg Chewable Tab PO SCH (09:13)
--- NOTE | 2019-10-26 10:13 | Progress Notes ---
DATE: 10/25/2019 Case was discussed with staff of the patient, reviewed records. The patient seems to be tired; however, the staff reports that he was able to do physical therapy. He eats 100% of the food that his family brings. He is sleeping better. He continues to appear to be depressed. He is able to tell me that this is 09/2019. He denies any current intent to harm himself or anyone. Sleeping better. He no longer feeling paranoid. No side effects with the Wellbutrin. He tolerated the Wellbutrin with no problems. We will continue outpatient group therapy, milieu therapy, and adjust medication as needed. JOB# [id number]
--- NOTE | 2019-10-26 15:31 | Progress Notes ---
DATE: 10/26/2019 Case was discussed with staff of the patient, reviewed records. The patient is doing better. The staff reports he is eating 100% of the food that his family brings but he preferred to stay in his bed when I talked to him, he seems to have not much energy though he is on Wellbutrin 50 mg daily. He reported that he does not want to harm himself or anyone. He slept well. He is isolating. He denies any other visual hallucination. Denies feeling paranoid. Working on discharge plan. Apparently, the place where he was accepted at this time does not want to go there. Advised the staff to try to find another place soon as he is ready to go to a lesser level of care. We will continue outpatient group therapy, milieu therapy, adjust medication as needed. JOB# [id number]
[2019-10-27] MEDS: INSULIN LISPRO SLIDING SCALE 100 UNITS/ML UNIT SUBQ SCH ×4 (06:52→21:05)
[2019-10-27] MEDS: Apixaban 5 MG TABLET PO SCH ×2 (08:27→16:31)
[2019-10-27] MEDS: MYRBETRIQ 50 MG PO SCH (08:28)
[2019-10-27] MEDS: Aspirin 81mg Chewable Tab PO SCH (08:28)
--- NOTE | 2019-10-28 00:22 | Progress Notes ---
DATE: 10/27/2019 Case was discussed with staff of the patient, reviewed records. The staff reports that the patient's energy level is improving. He is more responsive. The patient denies any intent to harm himself or anyone. Denies any visual hallucination. Sleeping better. He is eating 100% of the food that his family is bringing ,has a subway sandwich and he started eating it. The family did not want him to go to the memory care at [facility] and they are working on different placement. Hopefully, he will be discharged by Wednesday. No side effects with this medication, no sedation, no nausea and no increase in anxiety. I will continue outpatient group therapy, milieu therapy, adjust medication as needed. JOB# [id number] JEWELL
[2019-10-28] MEDS: INSULIN LISPRO SLIDING SCALE 100 UNITS/ML UNIT SUBQ SCH ×4 (06:51→21:05)
[2019-10-28] MEDS: MYRBETRIQ 50 MG PO SCH (09:31)
[2019-10-28] MEDS: Aspirin 81mg Chewable Tab PO SCH (09:32)
[2019-10-28] MEDS: Apixaban 5 MG TABLET PO SCH ×2 (09:32→16:39)
--- NOTE | 2019-10-28 18:13 | Psych Progress Note ---
Psych Progress Note - Intro Date of Progress Note: 10/28/19 - Assessment Assessment: The patient was interviewed, the case discussed with staff, chart and records were reviewed. The patient was visited at bedside and was sleeping. He arouses easily to his name but limited cooperation with the interview. Per the staff the patient has been more alert more cooperative more energy has been noted. There has been a notable improvement of his depression. And no side effects to his medications have been noted. - Vitals, I&O Vitals: Vital Signs - 24 hr 10/27/19 10/28/19 10/28/19 19:55 06:06 15:02 Temp 97.6 F 98.9 F 97.8 F HR 89 60 77 RR 20 17 18 BP 141/80 108/56 107/51 O2 Sat % 96 98 97 10/28/19 16:32 Temp HR 77 RR BP 107/51 O2 Sat % - Plan Plan: Continue current treatment plan and monitor for behavior. - Review of Relevant Data Review of Relevant Data: I have reviewed the following items and time salvador (where applicable) has been applied. - Medications Current Medications: Current Medications Acetaminophen (Tylenol) 325 mg PO Q4H PRN PRN Reason: Mild Pain (1-3) or Fever Stop: 12/19/19 22:42 Last Admin: 10/20/19 22:45 Dose: 325 mg Aspirin (Aspirin Chewable) 81 mg PO DAILY [facility] Stop: 12/08/19 08:59 Last Admin: 10/28/19 09:32 Dose: 81 mg Atorvastatin Calcium (Lipitor) 40 mg PO [facility]; Protocol Stop: 12/16/19 20:59 Last Admin: 10/27/19 20:53 Dose: 40 mg Bupropion HCl ([facility]rin) [facility]; Protocol Stop: 12/24/19 08:59 Last Admin: 10/28/19 09:34 Dose: Not Given Dextrose (Glutose 40%) 18.75 gm PO PRN PRN PRN Reason: BS Below 70 if tolerate po Stop: 12/07/19 21:06 Glucagon (Glucagen) 1 mg IM PRN PRN PRN Reason: BS Below 70 if not tolerate po Stop: 12/07/19 21:06 Insulin Human Lispro (Humalog Insulin Sliding Scale) 0 units SUBQ [facility]; Protocol Stop: 12/08/19 07:29 Last Admin: 10/28/19 16:39 Dose: 4 units Lorazepam (Ativan) 0.5 mg PO Q6HR PRN; Protocol PRN Reason: Agitation Stop: 12/07/19 21:02 Last Admin: 10/11/19 09:20 Dose: 0.5 mg Metformin HCl (Glucophage) 500 mg PO DAILY [facility] Stop: 12/19/19 14:29 Last Admin: 10/28/19 09:32 Dose: 500 mg Metoprolol Tartrate (Lopressor) 25 mg PO QPM [facility] Stop: 12/08/19 16:59 Last Admin: 10/28/19 16:32 Dose: Not Given Patient Own Med- Myrbetriq ( Mirabegron) Er 50mg Tab 1 PO DAILY [facility] Stop: 12/10/19 13:59 Last Admin: 10/28/19 09:31 Dose: 1 Zolpidem Tartrate (Ambien) 5 mg PO HS PRN PRN Reason: Insomnia Stop: 12/07/19 21:04 Last Admin: 10/17/19 20:36 Dose: 5 mg
[2019-10-29] MEDS: INSULIN LISPRO SLIDING SCALE 100 UNITS/ML UNIT SUBQ SCH ×4 (07:05→21:08)
--- NOTE | 2019-10-29 07:50 | Progress Notes ---
DATE: 10/29/2019 SUBJECTIVE: The patient in the hospital, seems to be more responsive. Sleeping, but arousable. Apparently, family working on a different discharge plan that was originally intended. Patient does seem to be more engaged. Staff noting some improvement. Medications were noted. No overt side effects. JOB# [id number]
[2019-10-29] MEDS: MYRBETRIQ 50 MG PO SCH (09:41)
[2019-10-29] MEDS: Apixaban 5 MG TABLET PO SCH ×2 (09:41→17:13)
[2019-10-29] MEDS: Aspirin 81mg Chewable Tab PO SCH (09:41)
--- NOTE | 2019-10-29 18:49 | Progress Notes ---
DATE: 10/29/2019 SUBJECTIVE: The patient is seen and examined. The patient is lying in the bed. The patient has no new complaint. OBJECTIVE: VITAL SIGNS: Temperature 98.4, pulse is 94, respiratory rate 18, blood pressure 113/63. Glucoscan is reviewed. HEENT: No facial asymmetry. NECK: Supple, no JVD. HEART: Irregularly irregular. CHEST AND LUNGS: Equal in expansion, no expiratory wheezing. ABDOMEN: Soft, no guarding, no rigidity. Bowel sounds are present. EXTREMITIES: No edema, no cyanosis. NEUROLOGIC: Nonfocal. CLINICAL IMPRESSION: 1. Diabetes mellitus. 2. Hypertension. 3. Chronic atrial fibrillation. 4. Coronary artery disease. 5. Degenerative joint disease. 6. Hyperlipidemia. 7. Fall risk. PLAN: 1. Psychiatric evaluation and management deferred to psychiatrist. 2. Monitor blood sugar. 3. Monitor blood pressure. 4. Diabetes management. 5. Antihypertensive medicine. 6. Rate control. 7. Statins. 8. Fall precaution. 9. Nutritional support. 10. Care plan reviewed and discussed with staff. JOB# [id number]
[2019-10-30] MEDS: INSULIN LISPRO SLIDING SCALE 100 UNITS/ML UNIT SUBQ SCH ×4 (06:59→21:18)
[2019-10-30] MEDS: Apixaban 5 MG TABLET PO SCH ×2 (08:33→16:25)
[2019-10-30] MEDS: MYRBETRIQ 50 MG PO SCH (08:33)
[2019-10-30] MEDS: Aspirin 81mg Chewable Tab PO SCH (08:33)
[2019-10-30 16:03] VITALS: BP 142/80
--- NOTE | 2019-10-30 20:15 | Progress Notes ---
DATE: 10/30/2019 SUBJECTIVE: Case was discussed with staff of the patient, reviewed records. The patient is much, much better. He is cheerful, animated. He is alert. At the beginning said, this is September, then he said no. The yesterday was Super Bowl Wednesday and it is 2019. The patient is more energetic. He is sleeping well and he is eating 100% of his food. His family arranged for him to go to a rehab center in [place] with 24-hour care. He denies any current intent to harm himself or anyone. He denies any auditory or visual or paranoia. Plan is for the patient to be discharged tomorrow. Meanwhile, we will continue outpatient group therapy, milieu therapy, and adjust medication as needed. JOB# [id number]
[2019-10-31] MEDS: INSULIN LISPRO SLIDING SCALE 100 UNITS/ML UNIT SUBQ SCH (07:01)
[2019-10-31] MEDS: Aspirin 81mg Chewable Tab PO SCH (08:07)
[2019-10-31] MEDS: Apixaban 5 MG TABLET PO SCH (08:07)
[2019-10-31] MEDS: MYRBETRIQ 50 MG PO SCH (08:10)
--- NOTE | 2019-10-31 13:00 | Discharge Summary ---
DATE OF DISCHARGE: 10/31/2019 IDENTIFYING INFORMATION: The patient is an 84-year-old male. CHIEF COMPLAINT: "I did bad things," multiple prior admissions. HISTORY OF PRESENT ILLNESS: The patient was admitted on a hold, grave disability. The patient was psychotic, suicidal attempt to try to harm himself. He has 4 prior hospitalizations. He believes he is going to burn in hell that he was walking around naked at home, was internally preoccupied, unable to formulate a viable plan for self-care. I talked to him, he was a poor historian, and he was also hard of hearing. He told me I did bad things I need to pay for it. The patient reportedly he had a nervous breakdown, unable to give me more details, unable tell me how he is sleeping or eating. He knew it was 09/2019. He is not sure exactly what day it was. He denies substance abuse. PAST PSYCHIATRIC HISTORY: Four prior psychiatric hospitalizations. The patient is confused, unable to give more details. HE IS ALLERGIC TO LISINOPRIL, PENICILLIN, AND AMIODARONE. The patient was on Lexapro 20 mg daily, Glucotrol insulin he is diabetic, and he was on metformin, and he has high blood pressure on metoprolol and atorvastatin for hyperlipidemia. The patient has 3 children. Unable to tell me if he is or not. 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 Denies any family psychotic disorder. COURSE IN THE HOSPITAL: The patient was diagnosed with major depression with psychosis and possible dementia. The patient was continued with Lexapro 20 mg a day and I added Risperdal 0.25 increased to 0.5 mg later that was decreased to 0.25 mg at bedtime and discontinued as the patient had a fall. I talked to his doctor in [place] Dr. De Los Santos, who tell me he saw him in July, he was in very good shape. His memory was very sharp. He was making jokes, take him off Aricept, also after he fell down and that was about 2 weeks ago on the weekend and family asked to withhold the medication. He was not taking medication, so I decided to take him off. I did start him on Effexor prior to that increase the dose to 75 mg daily; however, the staff or the ER physician felt he may have fell because his medication was sedating, so I took him off the Effexor. After talking to his family, I talked to his son twice and daughter maybe 2-3 times, and I took him off Effexor and start him on Wellbutrin 50 mg in the morning. The patient progressively got better. He was more energetic. He was sleeping better, eating better. He was eating 100% of his food. The family bring him medication. He was evaluated by [facility] and they decided to did not like that they want him to go to assisted living and they wanted to have a 24-hour care for him. As he improved, he was not acting anyway dangerous or suicidal. He was no longer delusional or paranoid. He felt he could be discharged to a lesser level of care. 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 MEDICAL DIAGNOSES: As per medical doctor. The patient will follow up with the psychiatrist and primary care physician in [facility]. EXPECTED OUTCOME: Stable if the patient complies with the above. JOB# [id number]
== END 2019-10-31 01:13 | DRG 885 ==
LOC: GERO 10:45
PROVIDERS: ADMIT Psychiatry & Neurology Psychiatry; ATTEND Psychiatry & Neurology Psychiatry
DX: F33.3 Major depressive disorder, recurrent, severe with psychotic symptoms (principal); I48.20 Chronic atrial fibrillation, unspecified; F03.90 Unspecified dementia, unspecified severity, without behavioral disturbance, psychotic disturbance, mood disturbance, and anxiety; I10 Essential (primary) hypertension; E78.5 Hyperlipidemia, unspecified; M19.90 Unspecified osteoarthritis, unspecified site; Z95.5 Presence of coronary angioplasty implant and graft; I25.10 Atherosclerotic heart disease of native coronary artery without angina pectoris; F41.9 Anxiety disorder, unspecified; E11.9 Type 2 diabetes mellitus without complications; Z88.8 Allergy status to other drugs, medicaments and biological substances; Z88.0 Allergy status to penicillin; Z82.49 Family history of ischemic heart disease and other diseases of the circulatory system; Z83.3 Family history of diabetes mellitus; Z79.01 Long term (current) use of anticoagulants; E78.00 Pure hypercholesterolemia, unspecified; Z79.84 Long term (current) use of oral hypoglycemic drugs
CPT/HCPCS: 71045-TC; 82948-90; 83036-90; 90899; 97530; G0410; X3904; Z7610